=== PATIENT | female | born 1955 | race Caucasian/White ===

== ENCOUNTER 2020-12-28 16:30 | Inpatient (IN) | payer OTHER ==
[2020-12-28] MEDS ORDERED: Dextrose 50% Abboject 50 ML SYRINGE SLOW IVP PRN (17:34)
[2020-12-28] MEDS ORDERED: Ondansetron PF 4 MG/2 ML Vial IVP PRN (17:34)
[2020-12-28] MEDS ORDERED: Dextrose 5% in Water 1,000 ML IV PRN (17:34)
[2020-12-28] MEDS ORDERED: Ondansetron ODT 4 MG TAB PO PRN (17:34)
[2020-12-28 17:35] VITALS: BMI 30.2
[2020-12-28] MEDS: Morphine 2 MG/ML VIAL SLOW IVP PRN (19:08)
[2020-12-28] MEDS ORDERED: traMADol HCl 50 MG TAB PO PRN (19:13)
[2020-12-28] MEDS: Famotidine 20 MG TAB PO SCH (19:55)
[2020-12-28] MEDS: Ibuprofen 600 MG TAB PO SCH (19:55)
[2020-12-28] MEDS: Acetaminophen 325 MG TAB PO SCH (19:57)
--- NOTE | 2020-12-28 22:07 | HP ---
CONSULTATIONS: Orthopedics, Dr. Mckeon. HISTORY OF PRESENT ILLNESS: The patient is a 65-year-old woman who was brought to our facility as a transfer from [place]. She presents to the emergency department after a ground level fall. She reports that she was carrying an ironing board down a step, missed the last step and landed on her hip. She was unable to ambulate. She was brought to the emergency department there, where she underwent evaluation and examination, noted to have a left intertrochanteric femur fracture. The patient denies hitting her head or any loss of consciousness or syncopal episode. ALLERGIES: PENICILLIN. MEDICATIONS: 1. Multivitamins. 2. Zyrtec. 3. Wellbutrin. 4. Lexapro. 5. Geodon. PAST MEDICAL HISTORY: Anxiety and depression. SOCIAL HISTORY: The patient lives independently at home in [place]. She denies drug, tobacco, or alcohol use. REVIEW OF SYSTEMS: A 10-point review of systems is negative as otherwise stated. PHYSICAL EXAMINATION: VITAL SIGNS: Temperature is 97.6, heart rate 71, blood pressure 112/67, respirations 16, and oxygen saturation 97% on room air. GENERAL: The patient is resting comfortably in bed. She is awake, alert, conversant, appropriate. Prieto Coma Scale is 15. HEENT: Head is normocephalic and atraumatic. Eyes, extraocular motion intact. PERRLA bilaterally. Ears are atraumatic without discharge. Nose is atraumatic without discharge. Oropharynx is clear. NECK: Nontender. Trachea is midline with no JVD. CHEST: Clear to auscultation with good inspiratory and expiratory effort. HEART: Regular rate and rhythm. ABDOMEN: Soft, flat, nontender with active bowel sounds. PELVIS: Stable with tenderness to palpation to the left hip consistent with her fracture. EXTREMITIES: Are neurovascularly intact x4. BACK: By report is atraumatic and nontender. LABORATORY FINDINGS: White blood cell count 15.1, hemoglobin 12.5, hematocrit 37.7, platelets 184. Sodium 141, potassium 4.0, chloride 108, CO2 of 25, BUN 13, creatinine 0.84, glucose 116. Influenza A and B negative. COVID is negative. RADIOGRAPHIC FINDINGS: AP pelvis shows a left intertrochanteric femur fracture. Views of the left hip again demonstrate a left intertrochanteric femur fracture. ASSESSMENT AND PLAN: 1. Status post ground level fall. 2. Left intertrochanteric femur fracture. 3. Acute pain secondary to above. Plan will be to admit the patient to the surgical floor. She will be n.p.o. after midnight. We will do pain control, pulmonary toilet, gastritis and mechanical venous thromboembolism prophylaxis. The patient will undergo surgery in the morning per Orthopedics. We will have Physical Therapy work with her postop and discuss placement at that time. She will likely be a candidate for [facility]. The evaluation, examination, laboratory, and radiographic findings were discussed with Dr. Smith prior to this dictation. Job ID: [id number]
[2020-12-28] MEDS: Sodium Chloride 0.9% 1,000 ML IV SCH (23:57)
[2020-12-29] MEDS: traMADol HCl 50 MG TAB PO PRN (00:04)
[2020-12-29] MEDS: Acetaminophen 325 MG TAB PO SCH ×4 (02:30→20:16)
[2020-12-29] MEDS: Ibuprofen 600 MG TAB PO SCH ×3 (02:31→20:17)
[2020-12-29] MEDS: Morphine 2 MG/ML VIAL SLOW IVP PRN ×2 (03:55→08:46)
[2020-12-29 06:02] LABS: #Eosinphils 0.3 thou/uL (0.0-0.7); #Lymphocytes 1.7 thou/uL (1.20-3.40); #Neutrophils 6.2 thou/uL (1.40-6.50); %Basophils 0.5 % (0.0-1.0); %Eosinophils 3.7 % (0.0-10.0); %Lymphocytes 18.5 % (21.0-51.0); %Monocytes 10.7 % (0.0-10.0); %Neutrophils 66.7 % (42.0-75.0); Hemoglobin 10.6 g/dL (12.0-16.0); Mean Corpuscular Hemoglobin 30.9 pg (27.0-31.0); Mean Corpuscular Volume 93.7 fL (78.0-98.0); Mean Platelet Volume 7.3 fL (7.4-10.4); Platelet Count 179 thou/uL (130-400); Red Blood Cell (RBC) Count 3.43 mill/uL (4.20-5.40); White Blood Cell (WBC) Count 9.3 thou/uL (4.8-10.8)
[2020-12-29 06:13] LABS: INR-International Normal Ratio 1.1; PTT 28.6 sec (22.9-36.1); Prothrombin Time 14.2 sec (12.0-14.7)
[2020-12-29 06:39] LABS: Anion Gap 12 mmol/L (10-20); BUN (Urea Nitrogen) 14 mg/dL (9.8-20.1); Calc. Creatinine Clearance 73 mL/min (70-130); Carbon Dioxide 23 mmol/L (23-31); Chloride 106 mmol/L (98-107); Glucose 99 mg/dL (80-115); Magnesium 1.6 mg/dL (1.6-2.6); Phosphorus 3.1 mg/dL (2.3-4.7); Potassium 4.1 mmol/L (3.5-5.1); Sodium 137 mmol/L (136-145)
[2020-12-29] MEDS ORDERED: Clindamycin/D5W 900 MG in Premix Bag 1 BAG IVPB SCH (07:30)
--- NOTE | 2020-12-29 08:34 | CON ---
DATE OF CONSULTATION: 12/29/2020 This is Viviane Meza PA-C dictating a report for Randall Mckeon MD. REQUESTING PHYSICIANS: Trauma Services. CONSULTING PHYSICIAN: Dr. Randall Mckeon. REASON FOR CONSULTATION: Left hip fracture. HISTORY OF PRESENT ILLNESS: This is a 65-year-old female who was brought to our facility as a transfer from the [facility]. She presented to the emergency department after a ground level fall. She reports that she was carrying an ironing board and there was irregularity in the floor with a small step. She missed a step and landed onto her left hip. She was unable to ambulate and cried for help. She was brought to the emergency department in [place] after her came to her assistance. She underwent evaluation and was found to have a left intertrochanteric femur fracture. She denies any head injury or loss of consciousness. She denies any numbness or tingling or other orthopedic complaints at this time. PAST MEDICAL HISTORY: Significant for anxiety and depression. SOCIAL HISTORY: The patient lives independently at home in [place] with her . She walks independently. She denies any tobacco, drug, or alcohol use. REVIEW OF SYSTEMS: Ten-point review of systems conducted and otherwise negative except for stated above. PHYSICAL EXAMINATION: VITAL SIGNS: Shows current vital signs including temperature of 98.5, pulse of 79, respiratory rate of 14, O2 saturation 93% on room air, blood pressure of 104/63. GENERAL: The patient is awake and alert. She is very pleasant and cooperative with exam at this time. She is nondistressed appearing, but does report her current pain as 6/10 in the left hip. HEENT: Head is normocephalic and atraumatic. NECK: Supple. Trachea midline. Breathing is nonlabored. EXTREMITIES: Evaluation of bilateral lower extremities shows no obvious shortening. No obvious deformities. Evaluation of the left lower extremity shows pain with any sort of movement. She is able to plantar flex and dorsiflex of the foot and able to move her toes. Skin is intact overlying the left hip. There is tenderness to palpation in this region. Evaluation of the right lower extremity and bilateral upper extremity shows that she is able to actively move these without any difficulty. No signs of trauma or deformity. RADIOGRAPHIC IMAGING: Include today with views of the left hip demonstrate a left intertrochanteric femur fracture with some displacement. There is superior migration of the distal fragment portion. This appears to be two-part fracture. ASSESSMENT: Left intertrochanteric femur fracture. PLAN: At this time, we will plan to proceed with a left hip DHS operative fixation of this fracture site this afternoon. Risks, benefits, and alternatives discussed at bedside with the patient today. She is amenable to the plan and verbalizes understanding. She has been n.p.o. and is admitted to the Trauma Service. She will likely stay in our facility for a day or two and await some placement if that is needed. She does live at home with her . Job ID: [id number]
[2020-12-29] MEDS: Senokot S 8.6-50 MG TAB PO SCH ×2 (08:50→21:55)
[2020-12-29] MEDS: Bupropion 150 MG SR TAB PO SCH (08:53)
[2020-12-29] MEDS: Famotidine 20 MG TAB PO SCH ×2 (08:53→21:55)
[2020-12-29] MEDS: Polyethylene Glycol 3350 17 GM Packet PO SCH (08:54)
[2020-12-29] MEDS: Escitalopram Oxalate 20 mg Tablet PO SCH (08:54)
[2020-12-29] MEDS ORDERED: Magnesium Sulfate 3 GM in Sodium Chloride 0.9% 100 ML IVPB SCH (09:00)
[2020-12-29] MEDS ORDERED: Acetaminophen 325 MG TAB PO SCH (09:00)
[2020-12-29] MEDS: Sodium Chloride 0.9% 1,000 ML IV SCH (09:27)
[2020-12-29] MEDS ORDERED: Bupivacaine HCl 0.5%/Epinephrine 1:200,000/PF 30 ml Vial ONE (10:14)
[2020-12-29] MEDS ORDERED: ePHEDrine 50 MG/ML VIAL ONE (10:14)
[2020-12-29] MEDS ORDERED: PROPOFOL 200 MG/20 ML VIAL ONE (10:14)
[2020-12-29] MEDS ORDERED: Dexamethasone 20 MG/5 ML VIAL ONE ×2 (10:14)
[2020-12-29] MEDS ORDERED: Ondansetron PF 4 MG/2 ML Vial ONE (10:14)
[2020-12-29] MEDS ORDERED: Lidocaine 1% PF 5 ML VIAL ONE (10:14)
[2020-12-29] MEDS ORDERED: Clindamycin/D5W 900 mg/50 ml Premix Bag ONE (12:58)
[2020-12-29] MEDS ORDERED: Midazolam HCl 2 mg/2 ml Vial ONE (13:12)
[2020-12-29] MEDS ORDERED: Dexamethasone 4 mg/ml Vial ONE (13:12)
[2020-12-29] MEDS ORDERED: Fentanyl 100 MCG/2 ML VIAL ONE ×2 (13:12→17:21)
--- NOTE | 2020-12-29 17:48 | RAD ---
LEFT HIP THREE VIEWS: History: Post-op FINDINGS: This shows placement of a Federico's type compression screw and slide plate stabilizing an intertrocha nteric fracture in good position. IMPRESSION: Open reduction internal fixation of intertrochanteric fracture of the left hip. POS: MELBA
--- NOTE | 2020-12-29 18:19 | OP ---
DATE OF PROCEDURE: 12/29/2020 PREOPERATIVE DIAGNOSIS: Left intertrochanteric femur fracture. POSTOPERATIVE DIAGNOSIS: Left intertrochanteric femur fracture. PROCEDURE PERFORMED: Left DHS placement for left intertrochanteric femur fracture. ANESTHESIA: General. DISPLAYER MERCHANDISE: Yusef Cherry PA-C IMPLANTS: Synthes DHS 135-degree 3-hole sideplate with 85-mm hip screw. COMPLICATIONS: None. DRAINS: None. SPECIMEN: None. OUTCOME: Satisfactory. INDICATIONS FOR PROCEDURE: Ms. Gómez is a 65-year-old lady, status post ground level fall, sustaining a left intertrochanteric femur fracture. After discussion with the patient and her including risks and benefits, we have decided to proceed with stabilization with a DHS device. Informed consent has been obtained. I believe all questions have been answered. DESCRIPTION OF PROCEDURE: The patient was brought to the operating room and a time-out performed followed by induction of general anesthesia. Next, the patient was positioned supine on the fracture table with the injured extremity held in longitudinal traction and slight internal rotation. Next, a sterile prep and drape was performed of the left lateral thigh. Under C-arm localization, a skin incision was made at the lateral thigh. After skin was sharply incised, dissection was carried down through a significant layer of subcutaneous fat exposing the fascia yehuda. The fascia yehuda was incised in line with the skin incision and then the vastus lateralis was reflected anteriorly off the femur, exposing the lateral cortex of the femur while my psychologist research assistant placed a retractor within the wound and retracting the vastus lateralis anteriorly. I placed 135 degree jig against the lateral cortex of the femur and while anterior displacement of the fracture was performed manually, a threaded guidewire was passed from the lateral cortex of the femur up the femoral neck into the femoral head approaching a [id number] position. This was checked on both AP and lateral C-arm images. Once appropriately positioned, measurement was taken off this guidewire for an appropriate length hip screw. Next, the step reamer was passed over this guidewire while my psychologist research assistant maintained retraction of the vastus lateralis anteriorly. Once the neck and head was further prepared, the hip screw with sideplate was then inserted into the wound with hip screw delivered up the femoral neck into the femoral head. Once positioned, the plate was then slid up the hip screw affixing the plate to the lateral aspect of the femur. The jig was then removed. A total of three 4.5 mm cortical screws were used to fix the sideplate against the lateral cortex of the femur. Once done, final AP and lateral C-arm images were obtained. Wound closure was then performed in layers with 0 Vicryl deep, followed by 2-0 Vicryl for the Lizandro fascia, 2-0 Vicryl subcutaneously, and then maribell for the skin. Xeroform gauze and tape dressing was applied to the lateral thigh and then the patient was transferred to recovery room in stable condition. There were no complications. She tolerated the procedure well. Job ID: [id number]
[2020-12-29] MEDS: Ziprasidone 60 MG CAP PO SCH (21:55)
[2020-12-29] MEDS: Clindamycin/D5W 900 MG in Premix Bag 1 BAG IVPB SCH (22:46)
[2020-12-30] MEDS: Ibuprofen 600 MG TAB PO SCH ×3 (03:00→21:11)
[2020-12-30] MEDS: Acetaminophen 325 MG TAB PO SCH ×4 (03:00→21:12)
[2020-12-30] MEDS: Clindamycin/D5W 900 MG in Premix Bag 1 BAG IVPB SCH (05:28)
--- NOTE | 2020-12-30 05:35 | PRG ---
DATE OF SERVICE: 12/29/2020 SUBJECTIVE: The patient is a 65-year-old female, who presented to the ED status post ground level fall and was found to have a left intertrochanteric femur fracture. Orthopedics was consulted and determined operative management would be appropriate for this patient. This morning, the patient said that the pain was well controlled. Otherwise, no acute concerns or questions. OBJECTIVE: VITAL SIGNS: Temperature 98.5, pulse 79, respiratory rate 14, O2 saturation 93% on room air. Blood pressure 104/63. GENERAL: 65-year-old female who appears stated age, in no acute distress. HEENT: Atraumatic, normocephalic. PULMONARY: Equal chest rise and fall. No acute respiratory distress. MUSCULOSKELETAL: Left lower extremity mobility limited by pain. Otherwise, no acute abnormalities. NEUROLOGICAL: A and O x3. No focal deficits. PSYCH: Mood and affect are appropriate and congruent. LABORATORY DATA: CBC significant for hemoglobin 10.6, hematocrit 32.1. Chemistry is remarkable for magnesium of 1.6. No new diagnostic imaging to report. ASSESSMENT: 1. Left intertrochanteric femur fracture. 2. Status post ground level fall. 3. Acute pain secondary to above. PLAN: The patient will be taken to operating room today per Orthopedic Surgery. The patient reported that OR time was around 1 or 2. After surgery, patient will work with Physical Therapy and Occupational Therapy to work toward discharge plan depending on patient's progress. We will re-evaluate after surgery. The patient was seen by Dr. Smith and plan was discussed with him. He agrees with assessment and plan. Job ID: [id number]
[2020-12-30] MEDS: Bupropion 150 MG SR TAB PO SCH (08:27)
[2020-12-30] MEDS: Senokot S 8.6-50 MG TAB PO SCH ×2 (08:28→21:13)
[2020-12-30] MEDS: Polyethylene Glycol 3350 17 GM Packet PO SCH (08:28)
[2020-12-30] MEDS: Famotidine 20 MG TAB PO SCH ×2 (08:28→21:13)
[2020-12-30] MEDS: Escitalopram Oxalate 20 mg Tablet PO SCH (08:28)
[2020-12-30] MEDS: traMADol HCl 50 MG TAB PO PRN ×2 (08:28→15:05)
[2020-12-30 09:41] LABS: #Basophils 0.1 thou/uL (0.0-0.2); #Lymphocytes 0.5 thou/uL (1.20-3.40); #Monocytes 0.7 thou/uL (0.11-0.59); #Neutrophils 10.6 thou/uL (1.40-6.50); %Basophils 0.9 % (0.0-1.0); %Eosinophils 0.1 % (0.0-10.0); %Lymphocytes 4.3 % (21.0-51.0); %Monocytes 6.2 % (0.0-10.0); %Neutrophils 88.6 % (42.0-75.0); Hemoglobin 10.2 g/dL (12.0-16.0); Mean Corpuscular HGB CONC 33.2 g/dL (32.0-36.0); Mean Corpuscular Hemoglobin 32.1 pg (27.0-31.0); Mean Corpuscular Volume 96.5 fL (78.0-98.0); Mean Platelet Volume 7.8 fL (7.4-10.4); Platelet Count 146 thou/uL (130-400); Red Blood Cell (RBC) Count 3.17 mill/uL (4.20-5.40)
[2020-12-30] MEDS: Enoxaparin Sodium 40 MG/0.4 ML SYRINGE SC SCH (09:48)
[2020-12-30] MEDS: Cyclobenzaprine 10 MG TAB PO PRN ×2 (14:02→21:13)
--- NOTE | 2020-12-30 16:17 | PDOC.GSPN ---
Surgery Progress Note: Subj - Subjective Narrative: 65 y/o female ground level fall secondary due to hypoglycemia. POD 2 left DHS placement for left intertrochanteric femur fracture. Patient out of bed to chair this morning. Pain well controlled on pain regimen and tolerating regular diet. Surgery Progress Note: Obj - Vital signs Vital signs: Vital Signs - Most Recent Temp Pulse Resp BP Pulse Ox 98.6 F 98 16 99/60 93 L 12/30/20 15:59 12/30/20 15:59 12/30/20 15:59 12/30/20 15:59 12/30/20 15:59 - Physical Exam General: no distress, well developed, well nourished ENT: no congestion, no hearing loss Neck: no bruits Cardiovascular: regular rate and rhythm Respiratory: other (Speaking full sentence, no respiratory distress) Musculoskeletal: other (LLE mobility limited, incision echymosis) Surgery Progress Note: Results - Labs Result Diagrams: 12/30/20 09:04 12/29/20 05:46 Lab results: Laboratory Results - last 12 hr 12/30/20 09:04 WBC 12.0 H RBC 3.17 L Hgb 10.2 L Hct 30.6 L MCV 96.5 MCH 32.1 H MCHC 33.2 RDW 12.0 Plt Count 146 MPV 7.8 Neutrophils % 88.6 H Lymphocytes % 4.3 L Monocytes % 6.2 Eosinophils % 0.1 Basophils % 0.9 Neutrophils # 10.6 H Lymphocytes # 0.5 L Monocytes # 0.7 H Eosinophils # 0.0 Basophils # 0.1 Surgery Progress Note: A/P - Problem (1) Fracture, intertrochanteric, left femur Current Visit: Yes Code(s): S72.142A - DISPLACED INTERTROCHANTERIC FRACTURE OF LEFT FEMUR, INIT Status: Acute Qualifiers: Encounter type: initial encounter Fracture type: closed Assessment and Plan: 65 y/o left femur fx POD 2. Weighting with assistance. DVT prophylaxis lovenox Pain regimen Tylenol, ultram and Flexeril H&H stable Dispo pending Case management insurance is not accepted at [facility] ([place], [place]) facility, case management looking into inpatient rehab. (2) Fall Current Visit: Yes Code(s): W19.XXXA - UNSPECIFIED FALL, INITIAL ENCOUNTER Status: Acute Qualifiers: Encounter type: initial encounter Qualified Code(s): W19.XXXA - Unspecified fall, initial encounter Assessment and Plan: See assessment 1 (3) Acute pain Current Visit: Yes Code(s): R52 - PAIN, UNSPECIFIED Status: Acute Assessment and Plan: See assessment 1
[2020-12-30] MEDS: Ziprasidone 60 MG CAP PO SCH (21:13)
[2020-12-31] MEDS: Acetaminophen 325 MG TAB PO SCH ×4 (02:50→22:15)
[2020-12-31] MEDS: Ibuprofen 600 MG TAB PO SCH ×3 (02:51→22:14)
[2020-12-31] MEDS: Bupropion 150 MG SR TAB PO SCH (07:52)
[2020-12-31] MEDS: Famotidine 20 MG TAB PO SCH ×2 (07:53→22:15)
[2020-12-31] MEDS: Senokot S 8.6-50 MG TAB PO SCH ×2 (07:53→22:16)
[2020-12-31] MEDS: Escitalopram Oxalate 20 mg Tablet PO SCH (07:53)
[2020-12-31] MEDS: Enoxaparin Sodium 40 MG/0.4 ML SYRINGE SC SCH (07:54)
[2020-12-31] MEDS: Polyethylene Glycol 3350 17 GM Packet PO SCH (07:54)
[2020-12-31] MEDS: Cyclobenzaprine 10 MG TAB PO PRN ×2 (11:55→22:15)
--- NOTE | 2020-12-31 13:14 | PRG ---
DATE OF SERVICE: 12/31/2020 SUBJECTIVE: The patient is postop day 3, status post DHS placement for left intertrochanteric femur fracture. She had no issues overnight. She is tolerating a diet. Her pain is controlled. She continues to progress with physical therapy. She is currently awaiting placement and insurance approval to [facility]. PHYSICAL EXAMINATION: VITAL SIGNS: Temperature is 97.6, heart rate 85, blood pressure 109/71, respirations 18, oxygen saturations 92% on room air. GENERAL: The patient is resting comfortably in bed. She is awake, alert, conversant, appropriate. Prieto Coma Scale is 15. HEENT: Unremarkable. LUNGS: Clear to auscultation bilaterally. HEART: Regular rate and rhythm. ABDOMEN: Soft, nontender with active bowel sounds. EXTREMITIES: Neurovascularly intact x4. Postop dressing is clean, dry, and intact. LABORATORY DATA: There are no labs or radiographs to review this morning. ASSESSMENT/PLAN: 1. Status post ground level fall. 2. Status post open reduction and internal fixation of left proximal femur fracture. PLAN: Plan will be to continue supportive care. Encourage physical and occupational therapy and await final placement decision. We expect this to be Saturday. Job ID: [id number]
[2020-12-31] MEDS: Ziprasidone 60 MG CAP PO SCH (22:15)
[2021-01-01] MEDS: Ibuprofen 600 MG TAB PO SCH ×3 (03:44→20:54)
[2021-01-01] MEDS: Acetaminophen 325 MG TAB PO SCH ×4 (03:44→20:54)
[2021-01-01] MEDS: Escitalopram Oxalate 20 mg Tablet PO SCH (07:35)
[2021-01-01] MEDS: Senokot S 8.6-50 MG TAB PO SCH ×2 (07:35→20:54)
[2021-01-01] MEDS: Polyethylene Glycol 3350 17 GM Packet PO SCH (07:36)
[2021-01-01] MEDS: Enoxaparin Sodium 40 MG/0.4 ML SYRINGE SC SCH (07:36)
[2021-01-01] MEDS: Famotidine 20 MG TAB PO SCH ×2 (07:36→20:54)
[2021-01-01] MEDS: Bupropion 150 MG SR TAB PO SCH (10:40)
--- NOTE | 2021-01-01 12:30 | PRG ---
DATE OF SERVICE: 01/01/2021 SUBJECTIVE: The patient remains on the surgical floor. She is postop day 4 status post DHS placement for left intertrochanteric femur fracture. She is tolerating a diet. Her pain is controlled and she continues to progress with physical therapy, though she is still requiring assistance getting in and out of bed and essentially doing activities of daily living and we would still recommend inpatient rehab for this patient. The patient reports no problems overnight. PHYSICAL EXAMINATION: VITAL SIGNS: Temperature is 98.5, heart rate 85, blood pressure 117/76, respirations 18, oxygen saturation 93% on room air. GENERAL: The patient is resting comfortably in bed. She has just returned to bed after working with Physical therapy. Again, she is doing very well ambulating, but does require assistance transitioning in and out of bed. RESPIRATIONS: Nonlabored. ABDOMEN: Soft, nontender. EXTREMITIES: Neurovascularly intact x4. LABORATORY DATA: There are no labs or radiographs to review this morning. ASSESSMENT: 1. Status post ground level fall. 2. Status post open reduction and internal fixation of left proximal femur fracture. PLAN: Plan will be to continue supportive care. Encourage physical and occupational therapy and await final placement decision. We added lactulose to her bowel regimen to facilitate return of bowel function. Again, the patient is denying any nausea, vomiting, or difficulty tolerating a diet. Job ID: [id number]
[2021-01-01] MEDS: Ziprasidone 60 MG CAP PO SCH (20:55)
[2021-01-02] MEDS: Ibuprofen 600 MG TAB PO SCH ×2 (03:40→11:30)
[2021-01-02] MEDS: Acetaminophen 325 MG TAB PO SCH ×3 (03:40→14:10)
[2021-01-02] MEDS: Famotidine 20 MG TAB PO SCH (08:47)
[2021-01-02] MEDS: Polyethylene Glycol 3350 17 GM Packet PO SCH (08:47)
[2021-01-02] MEDS: Escitalopram Oxalate 20 mg Tablet PO SCH (08:47)
[2021-01-02] MEDS: Enoxaparin Sodium 40 MG/0.4 ML SYRINGE SC SCH (08:47)
[2021-01-02] MEDS: Senokot S 8.6-50 MG TAB PO SCH (08:47)
[2021-01-02] MEDS: Bupropion 150 MG SR TAB PO SCH (08:48)
--- NOTE | 2021-01-02 14:15 | DIS ---
DATE OF ADMISSION: 12/28/2020 DATE OF DISCHARGE: 01/02/2021 ADMISSION DIAGNOSES: 1. Status post ground level fall. 2. Left intertrochanteric femur fracture. 3. Acute pain secondary to above. CONSULTATION: Orthopedics, Dr. Mckeon. PROCEDURE: Left DHS placement for left intertrochanteric femur fracture. SUMMARY: The patient is a 65-year-old woman, who was transferred to our facility from [place]. She presented to the emergency department after a ground level fall, which she underwent evaluation and examination, was noted to have the above injuries. The patient was able to be taken to the operating room the following day, where she tolerated the procedure well. She has begun working with Physical and Occupational Therapy and await final placement. The patient was eventually placed to inpatient rehab after insurance approval. At the time of discharge, she was progressing with physical and occupational therapy. She was tolerating a diet. Her pain was controlled. She will follow up with Dr. Mckeon in 2 weeks, sooner as needed. Job ID: [id number]
[2021-01-02 15:10] VITALS: BP 127/79; TEMP 98.4
== END 2021-01-02 17:15 | DRG 482 ==
LOC: SJJU 16:30
PROVIDERS: ADMIT Family Medicine; ATTEND Family Medicine
PROC: 0QH704Z Insertion of Internal Fixation Device into Left Upper Femur, Open Approach (ICD-10-PCS; principal; 2020-12-28)
DX: S72.142A Displaced intertrochanteric fracture of left femur, initial encounter for closed fracture (principal); W18.30XA Fall on same level, unspecified, initial encounter; Z20.822 Contact with and (suspected) exposure to COVID-19; F41.9 Anxiety disorder, unspecified; F32.9 Major depressive disorder, single episode, unspecified; E16.2 Hypoglycemia, unspecified; Z88.0 Allergy status to penicillin; Z79.899 Other long term (current) drug therapy
CPT/HCPCS: 36415; 76000; 80048; 83735; 84100; 85025; 85610; 85730; C1713; J1100; J1650; J2250; J2270; J2405; J2704; J3010; J3475; J3490